=== PATIENT | male | born 1985 | race Caucasian/White ===

== ENCOUNTER 2020-11-09 21:01 | Emergency (ER) | payer MEDICAID, SELFPAY ==
[2020-11-09 21:09] VITALS: BP 118/74; PULSE 62; RESP 18; TEMP 36.6; O2SAT 98; BMI 26.1
[2020-11-09] MEDS: Lidocaine HCl 2 % MPF 5 ML VIAL INFILTRATI (22:11)
--- NOTE | 2020-11-09 23:37 | ED_ITS ---
HPI - Extremity Problem General Chief complaint: Extremity Injury, Upper Stated complaint: FISH HOOK IN FINGER Time Seen by Provider: 11/09/20 22:02 Source: patient Mode of arrival: ambulatory Limitations: no limitations History of Present Illness HPI Narrative: 35-year-old male with no significant past medical history presents with fishhook in his right index finger. Tried to remove the hook at home however he was unable. Last Tdap vaccine was approximately 1 year ago. Does not describe any other symptoms and has full range of motion to the index finger of the right hand. MD Complaint: extremity pain Onset (ago): hour(s) (Within the hour of arrival) Pain Consistency: constant Location: right Quality: aching Radiation: distal Relieving factors: nothing Exacerbating factors: range of motion and palpation Associated symptoms: denies other symptoms Related Data Allergies Allergy/AdvReac Type Severity Reaction Status Date / Time No Known Allergies Allergy Unverified 11/09/20 22:02 Review of Systems Review of Systems: Constitutional: No Fever, No Chills ENT/Mouth: No Ear Pain, No Hoarseness, No sore throat Eyes: No Eye Pain, No Swelling, No Redness, No Foreign Body Cardiovascular: No Chest Pain, No SOB Respiratory: No Cough, No Dyspnea Gastrointestinal: No Nausea, No Vomiting, No Diarrhea, No abdominal Pain Genitourinary: No Dysuria, No Hematuria Musculoskeletal: positive right index finger pain, No Myalgias, No Joint Swelling Skin: Positive fish hook, No Skin lacerations, No rash Neuro: No Weakness, No Numbness, No Paresthesias, No Loss of Consciousness, No Dizziness, No Headache Psych: No Anxiety/Panic, No Depression Heme/Lymph: no easy bruising, no Lymphadenopathy Endocrine: No Polyuria, No Polydipsia Yes all other systems are reviewed and are negative [facility] Past Medical History Attestation statement: The following information was validated with the patient. Source: old records reviewed Social History Social History Advance Directives: No Advance Directives Information Provided: No Physical Exam Vital Signs: Vital Signs: Last Vital Signs Temp 97.8 F 11/09/20 21:09 Pulse 62 11/09/20 21:09 Resp 18 11/09/20 21:09 BP 118/74 11/09/20 21:09 Pulse Ox 98 11/09/20 21:09 Body Mass Index 26.1 Appearance: Alert. Oriented X3. No acute distress. Eyes: Pupils equal, round and reactive to light. ENT: Pharynx normal. Neck: Normal inspection. Neck supple. CVS: Normal heart rate and rhythm. Pulses normal. Respiratory: No respiratory distress. Breath sounds normal. Abdomen: Soft and nontender. Skin: Skin warm and dry. Normal skin color. Normal skin turgor. Extremities: [place] to right index finger Neuro: No motor deficit. No sensory deficit. Course Course Course Narrative: 35-year-old male presents with fishhook. Digital block complete, prepped and draped in sterile fashion, patient tolerated procedure well. Please refer to procedure note for full details. 0.2 mm incision made with 11 blade, fish hook removed without difficulty. Applied bandage. Patient has full range of motion and brisk capillary refill, discharge home. Procedures Nerve Block Nerve Block 1: Time out performed: Yes Local Anesthetic: lidocaine 2% Amount of anesthesia used (mL): 4 Side: right Nerve Blocks: digital Procedure Successful: Yes Patient Tolerated Procedure: well and no complications Complications: none MDM - Extremity (Nontraumatic) MDM Narrative Medical decision making narrative: Foreign body right finger fishhook Medical Records Attestation: I reviewed the patient's medical records. Discharge Plan Discharge Clinical Impression: [place] injury to finger Patient Disposition: Home, Self-Care Instructions: Soft Tissue Foreign Body (ED), Puncture Wound (ED) Additional Instructions: You were evaluated for foreign body to the right finger. We removed this fishhook. Your Tdap was updated about a year ago. Thank you for choosing this emergency department for evaluation. Please follow-up with primary care physician as needed. Return to the emergency department for any new, concerning, or worsening symptoms. Interventions: ED Discharge Assessment Last Done: 11/09/20 23:43 Discharge Date/Time: 11/09/20 23:45
== END 2020-11-09 23:45 | disposition home or self-care (01) ==
PROVIDERS: Emergency Provider Student in an Organized Health Care Education/Training Program
DX: S61.240A Puncture wound with foreign body of right index finger without damage to nail, initial encounter (principal); W45.8XXA Other foreign body or object entering through skin, initial encounter; Y93.19 Activity, other involving water and watercraft; Y92.89 Other specified places as the place of occurrence of the external cause; Y99.8 Other external cause status
CPT/HCPCS: 20520; 64450; 99283; 99284